=== PATIENT | male | born 1955 | race Caucasian/White ===

== ENCOUNTER 2021-02-25 10:30 | Outpatient (REF) | payer BC, SELFPAY ==
[2021-02-25 10:34] LABS: MANUAL DIFF FLAG NO
[2021-02-25 10:44] LABS: Basophils Percent Auto 0.4 % (0-2); Eosinophils Absolute Auto 0.1 X10*3/uL (0.0-0.4); Eosinophils Percent Auto 1.9 % (0-4); Hematocrit 43.9 % (42.0-52.0); Hemoglobin 14.9 g/dl (14.0-18.0); Imm Gran Abs Auto 0.04 X10*3/uL (0.00-0.03); Imm Gran Pct Auto 0.9 % (0.0-0.4); Lymphocytes Percent Auto 21.1 % (20-40); Mean Corpuscular HGB Conc 33.9 g/dl (31.0-36.0); Mean Corpuscular Hemoglobin 31.8 pg (27.0-33.0); Mean Corpuscular Volume 93.6 fL (80.0-98.0); Mean Platelet Volume 10.1 fL (9.4-12.4); Monocytes Absolute Auto 0.7 X10*3/uL (0.1-1.2); Monocytes Percent Auto 14.4 % (2-11); Neutrophils Absolute Auto 2.9 x10*3/uL (2.0-8.3); Neutrophils Percent Auto 61.3 % (45-73); Platelet Count 199 X10*3/uL (160-400); Red Blood Count 4.69 X10*6/uL (4.60-5.80); Red Cell Distribution Width 11.7 % (11.0-16.0); White Blood Count 4.7 X10*3/uL (4.8-10.8)
[2021-02-25 10:54] LABS: Appearance Urine CLEAR; Color Urine YELLOW; Glucose Urine UA NEG (NEG); Leukocyte Esterase Urine NEG (NEG); Nitrite Urine NEG (NEG); Urine Blood NEG (NEG); Urine Ketones NEG (NEG); Urine Protein NEG (NEG-TRACE)
[2021-02-25 10:57] LABS: Alanine Aminotransferase 36 U/L (0-40); Albumin Level 4.3 g/dL (3.5-5.0); Alkaline Phosphatase 93 U/L (39-117); Anion Gap 11 (12-20); Aspartate Amino Transferase 29 U/L (5-37); Bilirubin Total 0.8 mg/dL (0.0-1.0); Blood Urea Nitrogen 12 mg/dL (9-16); Calcium 9.5 mg/dL (8.4-10.2); Carbon Dioxide 28 mmol/L (22-29); Chloride 102 mmol/L (96-108); Cholesterol 207 mg/dL; Estimated Glomerular Filt Rate > 60; Glucose Fasting 108 mg/dL (60-99); HDL Cholesterol 70 mg/dL; LDL Cholesterol Calculated 123 mg/dl; Potassium 4.1 mmol/L (3.3-5.1); Sodium 137 mmol/L (135-145); Total Protein 6.8 g/dL (6.5-8.0); Triglycerides 73 mg/dL
[2021-02-25 11:05] LABS: Hemoglobin A1C 151.6633 umol/L
[2021-02-25 11:07] LABS: Estimated Average Glucose 108 mg/dL; Hemoglobin A1c % 5.4 %
[2021-02-25 11:16] LABS: Creatinine Urine 159.59 mg/dL; Microalbum/Creatinine Ratio Ur 5.6 ug/mg cr
[2021-02-25 11:19] LABS: PSA,Total (Free>4and<10) 2.62 ng/mL (0.00-4.00)
== END 2021-02-25 10:31 | disposition home or self-care (01) ==
LOC: HO.LNP 10:30
PROVIDERS: PCP Internal Medicine; Visit Provider Internal Medicine
DX: Z00.00 Encounter for general adult medical examination without abnormal findings (principal); Z12.5 Encounter for screening for malignant neoplasm of prostate; R19.5 Other fecal abnormalities; I10 Essential (primary) hypertension; R73.03 Prediabetes
CPT/HCPCS: 80053; 80061; 81003; 82043; 83036; 84153; 85025

== ENCOUNTER 2021-09-03 10:55 | Outpatient (REF) | payer BC, SELFPAY ==
[2021-09-03 11:54] LABS: PSA,Total (Free>4and<10) 2.82 ng/mL (0.00-4.00)
== END 2021-09-03 10:56 | disposition home or self-care (01) ==
LOC: HO.LNP 10:55
PROVIDERS: PCP Internal Medicine; Visit Provider Internal Medicine
DX: Z12.5 Encounter for screening for malignant neoplasm of prostate (principal); R97.20 Elevated prostate specific antigen [PSA]
CPT/HCPCS: 84153

== ENCOUNTER 2022-03-04 11:21 | Outpatient (REF) | payer BC, SELFPAY ==
[2022-03-04 11:25] LABS: MANUAL DIFF FLAG NO
[2022-03-04 11:58] LABS: Appearance Urine Clear; Color Urine Yellow; Glucose Urine UA Negative (Negative); Leukocyte Esterase Urine Negative (Negative); Nitrite Urine Negative (Negative); Specific Gravity - Urine 1.015 (1.005-1.025); Urine Blood Negative (Negative); Urine Ketones Negative (Negative); Urine Protein Negative (Neg-Trace)
[2022-03-04 12:02] LABS: Bacteria Urine None Seen (None Seen); Basophils Percent Auto 0.9 % (0-2); Eosinophils Absolute Auto 0.1 X10*3/uL (0.0-0.4); Eosinophils Percent Auto 2.4 % (0-4); Hematocrit 43.6 % (42.0-52.0); Hemoglobin 14.7 g/dl (14.0-18.0); Hyaline Casts Urine 0-2 /LPF (0-2); Imm Gran Abs Auto 0.04 X10*3/uL (0.00-0.03); Imm Gran Pct Auto 0.9 % (0.0-0.4); Lymphocytes Percent Auto 23.1 % (20-40); Mean Corpuscular HGB Conc 33.7 g/dl (31.0-36.0); Mean Corpuscular Hemoglobin 32.2 pg (27.0-33.0); Mean Corpuscular Volume 95.6 fL (80.0-98.0); Mean Platelet Volume 9.9 fL (9.4-12.4); Monocytes Absolute Auto 0.6 X10*3/uL (0.1-1.2); Monocytes Percent Auto 14.4 % (2-11); Neutrophils Absolute Auto 2.5 x10*3/uL (2.0-8.3); Neutrophils Percent Auto 58.3 % (45-73); Platelet Count 196 X10*3/uL (160-400); RBC Urine 0-2 /HPF (0-2); Red Blood Count 4.56 X10*6/uL (4.60-5.80); Red Cell Distribution Width 11.6 % (11.0-16.0); Squamous Epithelial Cell Urine 0-2 /HPF (0-2); WBC Urine 0-5 /HPF (0-5); White Blood Count 4.3 X10*3/uL (4.8-10.8)
[2022-03-04 12:17] LABS: Estimated Average Glucose 108 mg/dL; Hemoglobin A1c % 5.4 %
[2022-03-04 12:42] LABS: Microalbum/Creatinine Ratio Ur 5.3 ug/mg cr
[2022-03-04 14:07] LABS: Alanine Aminotransferase 35 U/L (0-40); Albumin Level 4.1 g/dL (3.5-5.0); Alkaline Phosphatase 94 U/L (39-117); Anion Gap 10 (12-20); Aspartate Amino Transferase 30 U/L (5-37); Bilirubin Total 0.4 mg/dL (0.0-1.0); Blood Urea Nitrogen 12 mg/dL (9-16); Calcium 8.8 mg/dL (8.4-10.2); Carbon Dioxide 29 mmol/L (22-29); Chloride 106 mmol/L (96-108); Cholesterol 202 mg/dL; Estimated Glomerular Filt Rate > 60; Glucose Fasting 107 mg/dL (60-99); HDL Cholesterol 68 mg/dL; LDL Cholesterol Calculated 114 mg/dl; PSA,Total (Free>4and<10) 2.17 ng/mL (0.00-4.00); Potassium 4.9 mmol/L (3.3-5.1); Sodium 140 mmol/L (135-145); Total Protein 6.5 g/dL (6.5-8.0); Triglycerides 102 mg/dL
== END 2022-03-04 11:22 | disposition home or self-care (01) ==
LOC: HO.LNP 11:21
PROVIDERS: Visit Provider Internal Medicine
DX: Z00.00 Encounter for general adult medical examination without abnormal findings (principal); I10 Essential (primary) hypertension; R73.09 Other abnormal glucose; Z12.5 Encounter for screening for malignant neoplasm of prostate
CPT/HCPCS: 80053; 80061; 81001; 82043; 83036; 84153; 85025

== ENCOUNTER 2022-05-13 11:25 | Outpatient (REF) | payer BC, SELFPAY ==
[2022-05-13 11:26] LABS: MANUAL DIFF FLAG NO
[2022-05-13 11:54] LABS: Basophils Percent Auto 0.9 % (0-2); Eosinophils Absolute Auto 0.1 X10*3/uL (0.0-0.4); Eosinophils Percent Auto 1.8 % (0-4); Hematocrit 40.4 % (42.0-52.0); Hemoglobin 13.8 g/dl (14.0-18.0); Imm Gran Abs Auto 0.06 X10*3/uL (0.00-0.03); Imm Gran Pct Auto 1.3 % (0.0-0.4); Lymphocytes Absolute Auto 1.3 X10*3/uL (1.2-4.9); Mean Corpuscular HGB Conc 34.2 g/dl (31.0-36.0); Mean Corpuscular Volume 93.7 fL (80.0-98.0); Mean Platelet Volume 9.3 fL (9.4-12.4); Monocytes Absolute Auto 0.6 X10*3/uL (0.1-1.2); Monocytes Percent Auto 13.9 % (2-11); Neutrophils Absolute Auto 2.4 x10*3/uL (2.0-8.3); Neutrophils Percent Auto 54.1 % (45-73); Platelet Count 223 X10*3/uL (160-400); Red Blood Count 4.31 X10*6/uL (4.60-5.80); Red Cell Distribution Width 11.7 % (11.0-16.0); White Blood Count 4.5 X10*3/uL (4.8-10.8)
== END 2022-05-13 11:26 | disposition home or self-care (01) ==
LOC: HO.LNP 11:25
PROVIDERS: Visit Provider Internal Medicine
DX: D70.9 Neutropenia, unspecified (principal)
CPT/HCPCS: 85025

== ENCOUNTER 2023-03-09 11:04 | Outpatient (REF) | payer MEDICARE, BC, SELFPAY ==
[2023-03-09 11:09] LABS: MANUAL DIFF FLAG NO
[2023-03-09 11:49] LABS: Basophils Percent Auto 0.5 % (0-2); Eosinophils Absolute Auto 0.1 X10*3/uL (0.0-0.4); Eosinophils Percent Auto 2.1 % (0-4); Hematocrit 43.3 % (42.0-52.0); Hemoglobin 14.9 g/dl (14.0-18.0); Imm Gran Abs Auto 0.04 X10*3/uL (0.00-0.03); Imm Gran Pct Auto 0.7 % (0.0-0.4); Lymphocytes Absolute Auto 1.1 X10*3/uL (1.2-4.9); Lymphocytes Percent Auto 18.8 % (20-40); Mean Corpuscular HGB Conc 34.4 g/dl (31.0-36.0); Mean Corpuscular Hemoglobin 32.3 pg (27.0-33.0); Mean Corpuscular Volume 93.9 fL (80.0-98.0); Mean Platelet Volume 9.8 fL (9.4-12.4); Monocytes Absolute Auto 0.6 X10*3/uL (0.1-1.2); Monocytes Percent Auto 11.3 % (2-11); Neutrophils Absolute Auto 3.7 x10*3/uL (2.0-8.3); Neutrophils Percent Auto 66.6 % (45-73); Platelet Count 198 X10*3/uL (160-400); Red Blood Count 4.61 X10*6/uL (4.60-5.80); Red Cell Distribution Width 11.6 % (11.0-16.0); White Blood Count 5.6 X10*3/uL (4.8-10.8)
[2023-03-09 11:52] LABS: Appearance Urine Clear; Color Urine Yellow; Glucose Urine UA Negative (Negative); Leukocyte Esterase Urine Trace (Negative); Nitrite Urine Negative (Negative); PH 7.5 (5.0-9.0); UMIC TRIGGER UACC YES; Urine Blood Negative (Negative); Urine Ketones Negative (Negative); Urine Protein Negative (Neg-Trace)
[2023-03-09 11:58] LABS: Bacteria Urine None Seen (None Seen); Hyaline Casts Urine 0-2 /LPF (0-2); RBC Urine 0-2 /HPF (0-2); Squamous Epithelial Cell Urine 0-2 /HPF (0-2); WBC Urine 0-5 /HPF (0-5)
[2023-03-09 12:00] LABS: Estimated Average Glucose 108 mg/dL; Hemoglobin A1c % 5.4 % (<6.0)
[2023-03-09 12:21] LABS: Alanine Aminotransferase 21 U/L (0-40); Alkaline Phosphatase 91 U/L (39-117); Anion Gap 14 (12-20); Aspartate Amino Transferase 23 U/L (5-37); Bilirubin Total 0.7 mg/dL (0.0-1.0); Blood Urea Nitrogen 10 mg/dL (9-16); Calcium 9.1 mg/dL (8.4-10.2); Carbon Dioxide 26 mmol/L (22-29); Chloride 103 mmol/L (96-108); Cholesterol 186 mg/dL (<200); Estimated Glomerular Filt Rate > 60; Glucose Fasting 102 mg/dL (60-99); HDL Cholesterol 58 mg/dL (>40); LDL Cholesterol Calculated 106 mg/dL (<100); Potassium 3.8 mmol/L (3.3-5.1); Sodium 139 mmol/L (135-145); Total Protein 6.8 g/dL (6.5-8.0); Triglycerides 113 mg/dL (<150)
[2023-03-09 12:23] LABS: PSA,Total (Free>4and<10) 2.62 ng/mL (0.00-4.00)
[2023-03-09 12:41] LABS: Microalbum/Creatinine Ratio Ur 3.8 ug/mg cr (<30)
== END 2023-03-09 11:05 | disposition home or self-care (01) ==
LOC: HO.LNP 11:04
PROVIDERS: Visit Provider Internal Medicine
DX: Z00.00 Encounter for general adult medical examination without abnormal findings (principal); Z12.5 Encounter for screening for malignant neoplasm of prostate; I10 Essential (primary) hypertension; R73.03 Prediabetes; D70.9 Neutropenia, unspecified
CPT/HCPCS: 80053; 80061; 81001; 82043; 82570; 83036; 84153; 85025

== ENCOUNTER 2024-03-24 12:12 | Outpatient (REF) | payer MEDICARE, BC, SELFPAY ==
--- OUTSIDE RECORDS SUMMARY | 2024-03-24 12:15 | XMS_ITS ---
Author Organization Cecilio Ruffin MD Address [address] [place], [place] [phone] Care Team Providers Care Nail Kegger Name Role Phone Cecilio Ruffin Primary Care Provider ALLERGIES No Known Allergies RESULTS Component Value Reference Range Notes Occult Blood, Stool, Guaiac Reviewed date:03/19/2023 12:01:43 PM Interpretation:Negative Performing Lab: Notes/Report: Negative Occult Blood, Stool, Guaiac Neg REASON FOR VISIT review labs, No Covid symptoms MEDICATIONS Medication SIG (Take, Route, Frequency, Duration) Notes Start Date End Date Status Irbesartan-hydroCHLOROthia zide 300-12.5 MG TAKE 1 TABLET BY MOUTH EVERY DAY Active SOCIAL HISTORY Tobacco Use: Social History Observation Description Date Details (start date - stop date) Never Smoker NA - NA Sex Assigned At : Social History Observation Description Sex Assigned At Unknown Tobacco Use/Smoking Question Answer Notes Patient is a nonsmoker Additional Findings: Tobacco Non-User Cu rrent non-smoker, currently using no form of tobacco Alcohol Screen Question Answer Notes Did you have a drink contain ing alcohol in the past year? Yes How often did you have a dri nk containing alcohol in the past year? 4 or more times a week (4 points) How many drinks did you have on a typical day when you were drinking in the past year? 1 or 2 drinks (0 point) How often did you have 6 or more drinks on one occasion in the past year? Never (0 point) Points 4 Interpretation Positive VITAL SIGNS BMI 27.80 kg/m2 03/16/2023 Blood pressure systolic 128 mm Hg 03/16/20 23 Blood pressure diastolic 86 mm Hg 023 Height 72 in 03/16/2023 Weight 205 lbs 03/16/2023 weight is up 2 pounds since 09-08-22 Encounters Encounter Location Date Provider Diagnosis Cecilio Ruffin MD [address] [place] [address] Drive [address] [place] [phone] 03/16/2023 Cecilio Ruffin Essential hypertension I10 ; Prediabetes R73.09 ; History of melanoma Z85.820 ; Colon cancer screening Z12.11 and Depression screening Z13.31 ASSESSMENTS Encounter Date Diagnosis Assessment Notes Treatment Notes Treatment Clinical Notes 03/16/2023 Essential hypertension (ICD-10 - I10) well controlled, will continue current regiment 03/16/2023 Prediabetes (ICD-10 - R73.09) a1c is good, no need for medication at this time 03/16/2023 History of melanoma (ICD-10 - Z85.820) no sign of any melenoma 03/16/2023 Colon cancer screening (ICD-10 - Z12.11) guaiac negative 03/16/2023 Depression screening (ICD-10 - Z13.31) negative screen PLAN OF TREATMENT Medication Medication Name Sig Start Date Stop Date Notes Irbesartan-hydroCHLOROthiazi de 300-12.5 MG TAKE 1 TABLET BY MOUTH EVERY DAY Treatment Notes Assessment Notes Essential hypertension well controlled, will continue current regiment Prediabetes a1c is good, no need for medication at this time History of melanoma no sign of any melen markos Colon cancer screening guaiac negative Depression screening negative screen Next Appt Details Follow Up: 6 Months, Reason: Provider Name:Cecilio hill, 04/01/2024 10:00:00 AM, [address] [place] [address], Suite [facility], [place], [place], [phone], Progress Notes * Examination Category Sub-Category Detail Notes General Examination GENERAL APPEARANCE: alert, w ell hydrated, in no distress , male HEAD: normocephalic EYES: BOTH EYES, extraocul ar movement full and smooth EARS: BOTH EARS, normal THROAT: no erythema, no exud ate, pharynx normal NECK/THYROID: no carotid bruit, no cervical lymphadenopathy HEART: regular rate and rhy thm, no murmurs, rubs, gallops LUNGS: no wheezes, rales, r honchi, good air movement, clear to auscultation bilaterally ABDOMEN: no hepatosplenomegal y, soft, nontender, nondistended SKIN: good turgor EXTREMITIES: no edema MALE GENITOURINARY: no testicular mass, circumcised, testes descended bilaterally RECTAL EXAM: stool guaiac negativ e, no masses palpable, prostate normal History and Physical Notes * HPI (History of Present Illness) Category Sub-Category Detail Notes Depression Screening PHQ-9 Little inte rest or pleasure in doing things: Not at all Feeling down, depressed, or hopeless: No t at all Trouble falling or staying asleep, or sl eeping too much: Not at all Feeling tired or having little energy: N ot at all Poor appetite or overeating: Not at all Feeling bad about yourself o r that you are a failure, or have let yourself or your family down: Not at all Trouble concentrating on thi ngs, such as reading the newspaper or watching television: Not at all Moving or speaking so slowly that other people could have noticed; or the opposite, being so fidgety or restless that you have been moving around a lot more than usual: Not at all Thoughts that you would be b jannet off or of hurting yourself in some way: Not at all Total Score: 0 Interpretation and Intervention Depression Rogelio cole Findings: Negative Follow-Up for Depression: : review of PH Q-9 found negative result, no follow-up needed SDOH Questions SDOH Questions In the past year have you been worried about losing housing?: No In the past year have you or any family members you live with been unable to get any of the following when it was really needed? Check all that apply:: None Fall Risk History Have you had any falls with injury in the past year?: No Have you had two or more falls in the year?: No Communication Needs Communication Needs Does the patient have a hearing impairment: No Does the patient have a vision impairmen t?: Yes ?If yes, what is the vision impairment?: Glasses Does the patient have a cognition impair ment?: No
--- OUTSIDE RECORDS SUMMARY | 2024-03-24 12:15 | XMS_ITS | Patient Health Record ---
Author Organization Cecilio Ruffin MD Address [address] [place], [place] [phone] Care Team Providers Care Professor Of Environmental Engineering Name Role Phone Cecilio Ruffin Primary Care Provider ALLERGIES No Known Allergies REASON FOR REFERRAL No Information MEDICATIONS Medication SIG (Take, Route, Frequency, Duration) Notes Start Date End Date Status Irbesartan-hydroCHLOROthia zide 300-12.5 MG TAKE 1 TABLET BY MOUTH EVERY DAY for 90 Active Ciclopirox 0.77 % APPLY DAILY TO SKIN EVERY DAY FOR 14 DAYS for 30 Active IMMUNIZATIONS Vaccine Route Administration Date Status Comme nts TDaP IM Intramuscular 01/27/2012 Administered Tetanus Unknown 01/27/2012 Administered Covid Vaccine Unknown 05/19/2020 Administered Pfizer SARS-COV-2 Pfizer Unknown 06/16/2020 Administered Fluarix Quadrivalent IM Intramuscular 03/04/2022 Administe red Influenza High Dose IM Intramuscular 03/09/2023 Administer ed DECLINED, FLU Unknown 12/01/2013 Refused Fluarix Quadrivalent Unknown 05/15/2016 Refused Fluarix Quadrivalent Unknown 01/06/2017 Refused Fluarix Quadrivalent Unknown 01/16/2017 Refused Fluarix Quadrivalent Unknown 01/25/2018 Refused Shingrix Unknown 08/03/2018 Refused PPSV23 (Pnemovax) Unknown 08/03/2018 Refused Fluarix Quadrivalent Unknown 02/01/2019 Refused Fluarix Quadrivalent Unknown 02/13/2020 Refused Fluarix Quadrivalent Unknown 03/04/2021 Refused SOCIAL HISTORY Tobacco Use: Social History Observation [...] nk containing alcohol in the past year? Monthly or less (1 point) How many drinks did you have on a typical day when you were drinking in the past year? 1 or 2 drinks (0 point) How often did you have 6 or more drinks on one occasion in the past year? Never (0 point) Points 1 Interpretation Negative PROBLEMS Problem Type ICD Code Onset Dates Problem Status W/U Status Risk SNOMED Code Notes Problem Essential hypertension (I10) Active confirmed 89617624 Problem Prediabetes (R73.09) Active confirmed 0438229 Problem History of melanoma (Z85.820) Active confirmed 782682483 Problem Neutropenia, unspecified type (D70.9) Active confirmed 202823892 Problem Bilateral carpal tunnel syndrome (G56.03) Active confirmed 89725238 VITAL SIGNS Blood pressure diastolic 60 mm Hg 09/22/2023 nacho ggt is up 4 pounds since 03-16-23 Height 72 in 09/22/2023 weiggt is up 4 pounds since 03-16-23 Blood pressure systolic 104 mm Hg 09/22/2023 weig gt is up 4 pounds since 03-16-23 Weight 209 lbs 09/22/2023 weiggt is up 4 pounds since 03-16-23 BMI 28.34 kg/m2 09/22/2023 weiggt is up 4 pounds since 03-16-23 Encounters Encounter Location Date Provider Diagnosis Cecilio Ruffin MD [address] [place] [address] Drive [address] [place] [id number] 03/24/2024 Cecilio Ruffin Essential hypertension I10 ; Prediabetes R73.09 and Neutropenia, unspecified type D70.9 Cecilio Ruffin MD [address] [place] [address] Drive [address] [place] [id number] 09/22/2023 Cecilio Ruffin Jock itch B35.6 and Essential hypertension I10 ASSESSMENTS Encounter Date Diagnosis Assessment Notes Treatment Notes Treatment Clinical Notes 03/24/2024 Essential hypertension (ICD-10 - I10) 09/22/2023 Essential hypertension (ICD-10 - I10) doing well on meds. no symptoms 09/22/2023 Jock itch (ICD-10 - B35.6) patient verbalized understanding of medication and directions for use 03/24/2024 Prediabetes (ICD-10 - R73.09) 03/24/2024 Neutropenia, unspecified type (ICD-10 - D70.9) PLAN OF TREATMENT Pending Test Test Name Order Date Electrocardiogram (EKG) 01/16/2017 Electrocardiogram (EKG) 01/28/2018 Complete Blood Count Auto Diff 4 Comprehensive [place]. Panel Fast 4 Lipid Panel 03/24/2024 PSA,Total (Free>4and<10) 03/24/2024 Microalbumin, Random 03/24/2024 Hemoglobin A1c 03/24/2024 UA ClnCatch+Micro w/rflx Cult 03/24/2024 Next Appt Details Provider Name:Cecilio parksr, 04/01/2024 10:00:00 AM, [address] [place] [address], [address], [place], [place], [phone], Insurance Providers Payer Name Payer Address Payer Phone Subscriber Number Group Number Insured Name Patient Relationship to Insured Coverage Start Date Coverage End Date MEDICARE NHIC [address] [place] [address] [id number] Pravin Webb Self - patient is the insured [employer] [address] [place], [place] [id number] Pravin Webb Self - patient is the insured MEDICAL (GENERAL) HISTORY Medical History History ICD Code colonoscopy 2008 due 2018; c olonoscopy 02/20/[address] Salinas - repeat 10 years 11/30/13 refuses flu vac
--- OUTSIDE RECORDS SUMMARY | 2024-03-24 12:15 | XMS_ITS ---
Author Organization Cecilio Ruffin MD Address [address] [place], [place] [phone] Care Team Providers Care Electrician Helper Powerhouse Name Role Phone Cecilio Ruffin Primary Care Provider ALLERGIES No Known Allergies REASON FOR VISIT 6 MO F/U MEDICATIONS Medication SIG (Take, Route, Frequency, Duration) Notes Start Date End Date Status Ciclopirox 0.77 % 1 application Putty Maker ally Once a day for 14 days 09/22/2023 Active Irbesartan-hydroCHLOROthia zide 300-12.5 MG TAKE 1 TABLET BY MOUTH EVERY DAY Active VITAL SIGNS BMI 28.34 kg/m2 09/22/2023 Blood pressure systolic 104 mm Hg 09/22/19 24 Blood pressure diastolic 60 mm Hg 024 Height 72 in 09/22/2023 Weight 209 lbs 09/22/2023 weiggt is up 4 pounds since 03-16-23 Encounters Encounter Location Date Provider Diagnosis Cecilio Ruffin MD [address] [place] [phone] 09/22/2023 Cecilio Ruffin Jock itch B35.6 and Essential hypertension I10 ASSESSMENTS Encounter Date Diagnosis Assessment Notes Treatment Notes Treatment Clinical Notes 09/22/2023 Jock itch (ICD-10 - B35.6) patient verbalized understanding of medication and directions for use 09/22/2023 Essential hypertension (ICD-10 - I10) doing well on meds. no symptoms PLAN OF TREATMENT Medication Medication Name Sig Start Date Stop Date Notes Ciclopirox 0.77 % 1 application Putty Maker ally Once a day for 14 days 09/22/2023 Irbesartan-hydroCHLOROthiazi d e 300-12.5 MG TAKE 1 TABLET BY MOUTH EVERY DAY Treatment Notes Assessment Notes Jock itch patient verbalized u nderstanding of medication and directions for use Essential hypertension doing well on med s. no symptoms Next Appt Details Provider Name:Cecilio hill, 04/01/2024 10:00:00 AM, [address] [facility], [address], [place], [place], [phone], Progress Notes * Examination Category Sub-Category Detail Notes General Examination GENERAL APPEARANCE: alert, w ell hydrated, in no distress HEAD: normocephalic HEART: regular rate and rhy thm, no murmurs, rubs, gallops LUNGS: no wheezes, rales, r honchi, good air movement, clear to auscultation bilaterally SKIN: good turgor
[2024-03-24 12:18] LABS: MANUAL DIFF FLAG NO
[2024-03-24 12:29] LABS: Basophils Percent Auto 0.7 % (0-2); Eosinophils Absolute Auto 0.1 X10*3/uL (0.0-0.4); Eosinophils Percent Auto 1.2 % (0-4); Hematocrit 45.1 % (42.0-52.0); Hemoglobin 15.2 g/dl (14.0-18.0); Imm Gran Abs Auto 0.04 X10*3/uL (0.00-0.03); Lymphocytes Percent Auto 25.4 % (20-40); Mean Corpuscular HGB Conc 33.7 g/dl (31.0-36.0); Mean Corpuscular Hemoglobin 32.1 pg (27.0-33.0); Mean Corpuscular Volume 95.3 fL (80.0-98.0); Mean Platelet Volume 9.9 fL (9.4-12.4); Monocytes Absolute Auto 0.6 X10*3/uL (0.1-1.2); Monocytes Percent Auto 14.8 % (2-11); Neutrophils Absolute Auto 2.3 x10*3/uL (2.0-8.3); Neutrophils Percent Auto 56.9 % (45-73); Platelet Count 177 X10*3/uL (160-400); Red Blood Count 4.73 X10*6/uL (4.60-5.80); Red Cell Distribution Width 11.7 % (11.0-16.0); White Blood Count 4.1 X10*3/uL (4.8-10.8)
[2024-03-24 12:31] LABS: Appearance Urine Clear; Color Urine Yellow; Glucose Urine UA Negative (Negative); Leukocyte Esterase Urine Negative (Negative); Nitrite Urine Negative (Negative); PH 5.5 (5.0-9.0); Urine Blood Negative (Negative); Urine Ketones Negative (Negative); Urine Protein Negative (Neg-Trace)
[2024-03-24 12:34] LABS: Bacteria Urine None Seen (None Seen); Hyaline Casts Urine 0-2 /LPF (0-2); RBC Urine 0-2 /HPF (0-2); Squamous Epithelial Cell Urine 0-2 /HPF (0-2); WBC Urine 0-5 /HPF (0-5)
[2024-03-24 12:37] LABS: Estimated Average Glucose 105 mg/dL; Hemoglobin A1C 133.3181 umol/L; Hemoglobin A1c % 5.3 % (<6.0); Total Hemoglobin (HGBA1C) 3880.9254 umol/L
[2024-03-24 12:46] LABS: Creatinine Urine 136.87 mg/dL; Microalbum/Creatinine Ratio Ur 6.5 ug/mg cr (<30)
[2024-03-24 12:48] LABS: Alanine Aminotransferase 43 U/L (0-40); Albumin Level 4.3 g/dL (3.5-5.0); Alkaline Phosphatase 89 U/L (39-117); Anion Gap 11 (12-20); Aspartate Amino Transferase 38 U/L (5-37); Bilirubin Total 0.4 mg/dL (0.0-1.0); Blood Urea Nitrogen 12 mg/dL (9-16); Calcium 8.7 mg/dL (8.4-10.2); Carbon Dioxide 27 mmol/L (22-29); Chloride 107 mmol/L (96-108); Cholesterol 201 mg/dL (<200); Estimated Glomerular Filt Rate > 60; Glucose Fasting 60 mg/dL (60-99); HDL Cholesterol 66 mg/dL (>40); LDL Cholesterol Calculated 112 mg/dL (<100); Potassium 4.2 mmol/L (3.3-5.1); Sodium 141 mmol/L (135-145); Total Protein 7.1 g/dL (6.5-8.0); Triglycerides 116 mg/dL (<150)
[2024-03-24 13:06] LABS: PSA,Total (Free>4and<10) 2.26 ng/mL (0.00-4.00)
== END 2024-03-24 12:13 | disposition home or self-care (01) ==
LOC: HO.LNP 12:12
PROVIDERS: Visit Provider Internal Medicine
DX: I10 Essential (primary) hypertension (principal); R73.09 Other abnormal glucose; D70.9 Neutropenia, unspecified; Z12.5 Encounter for screening for malignant neoplasm of prostate
CPT/HCPCS: 80053; 80061; 81001; 82043; 82570; 83036; 84153; 85025

== ENCOUNTER 2025-03-28 07:45 | Outpatient (REF) | payer MEDICARE, BC, SELFPAY ==
--- OUTSIDE RECORDS SUMMARY | 2024-03-24 03:45 | XMS_ITS ---
Author Organization Cecilio Ruffin MD Address [address] [place], [place] [id number] Care Team Providers Care Recruiting Scheduler Name Role Phone Cecilio Ruffin Primary Care Provider [phone] Results Component Value Reference Range Notes Complete Blood Count Auto Di ff Reviewed date:03/24/2024 12:35:26 PM Interpretation: Performing Lab:[facility], [address] [place] [phone] Notes/Report: White Blood Count 4.1 4.8-10.8 X10*3/uL Red Blood Count 4.73 4.60-5.80 X10*6/uL Hemoglobin 15.2 14.0-18.0 g/dl Hematocrit 45.1 42.0-52.0 % Mean Corpuscular Volume 95.3 80.0-98.0 fL Mean Corpuscular Hemoglobin 32.1 27.0-33.0 pg Mean Corpuscular HGB Conc 33.7 31.0-36.0 g/dl Red Cell Distribution Width 11.7 11.0-16.0 % Platelet Count 177 160-400 X10*3/uL Mean Platelet Volume 9.9 9.4-12.4 fL Neutrophils Percent Auto 56.9 45-73 % Imm Gran Pct Auto 1.0 0.0-0.4 % Lymphocytes Percent Auto 25.4 20-40 % Monocytes Percent Auto 14.8 2-11 % Eosinophils Percent Auto 1.2 0-4 % Basophils Percent Auto 0.7 0-2 % NRBC Pct Auto 0.0 0.0-0.2 /100WBC Neutrophils Absolute Auto 2.3 2.0-8.3 x10*3/u L Imm Gran Abs Auto 0.04 0.00-0.03 X10*3/uL Lymphocytes Absolute Auto 1.0 1.2-4.9 X10*3/u L Monocytes Absolute Auto 0.6 0.1-1.2 X10*3/uL Eosinophils Absolute Auto 0.1 0.0-0.4 X10*3/u L Basophils Absolute Auto 0.0 0.0-0.2 X10*3/uL NRBC Abs Auto 0.000 0.0-0.012 X10*3/uL Comprehensive [place]. Panel Fa st Reviewed date:03/24/2024 12:54:04 PM Interpretation: Performing Lab:[facility], [address] [place] [phone] Notes/Report: Sodium 141 135-145 mmol/L Potassium 4.2 3.3-5.1 mmol/L Chloride 107 96-108 mmol/L Carbon Dioxide 27 22-29 mmol/L Anion Gap 11 12-20 Blood Urea Nitrogen 12 9-16 mg/dL Creatinine 0.72 0.5-1.4 mg/dL Estimated Glomerular Filt Rate > 60 Chronic Kidney Disease: Estimated GFR < 60 mL/min/1.73m2 Severe Kidney Disease: Estimated GFR < 15 mL/min/1.73m2 Glucose Fasting 60 60-99 mg/dL Calcium 8.7 8.4-10.2 mg/dL Bilirubin Total 0.4 0.0-1.0 mg/dL Aspartate Amino Transferase 38 5-37 U/L Alanine Aminotransferase 43 0-40 U/L Total Protein 7.1 6.5-8.0 g/dL Albumin Level 4.3 3.5-5.0 g/dL Alkaline Phosphatase 89 39-117 U/L Lipid Panel Reviewed date:03/24/2024 12:53:20 PM Interpretation: Performing Lab:[facility], [address] [place] [phone] Notes/Report: Triglycerides 116 <150 mg/dL Desirable Triglyceride: less than 150 mg/dL Borderline High Triglyceride 150-199 mg/dL High Triglyceride: 200-499 mg/dL Very High Triglyceride: greater than or equal to 5OO mg/dL Cholesterol 201 <200 mg/dL Desirable Cholesterol: less than 200 mg/dL Borderline High Cholesterol: 200-239 mg/dL High Cholesterol: greater than 239 mg/dL LDL Cholesterol Calculated 112 <100 mg/dL Desirable LDL: less than 100 mg/dL Near Optimal/Above Optimal LDL: 110-129 mg/dL Borderline High LDL: 130-159 mg/dL High LDL: 160-189 mg/dL Very High LDL: greater than or equal to 190 mg/dL HDL Cholesterol 66 >40 mg/dL Desirable HDL: greater than 40 mg/dL Note: This HDL assay may give artificially low results in patients with liver disease. PSA,Total (Free>4and<10) Reviewed date:03/24/2024 04:50:11 PM Interpretation: Performing Lab:[address] [phone] Notes/Report: PSA,Total (Free>4and<10) 2.26 0.00-4.00 ng/mL A Free PSA was not performed: The percentage of Free PSA can be used to enhance the differentiation of prostate cancer from benign prostatic disease in subjects whose PSA levels are between 4.0 and 10.0 ng/mL. For subjects whose PSA levels are below 4.0 or above 10.0 ng/mL, the risk of prostate cancer is determined on the basis of the PSA alone. Therefore the % Free PSA is recommended only for those subjects whose PSA levels are between 4.0 and 10.0 ng/mL. PSA methodology: Diaz Alinity i Chemiluminescent Microparticle Immunoassay (CMIA) Microalbumin, Random Reviewed date:03/24/2024 04:57:13 PM Interpretation: Performing Lab:[facility], [address] [place] [phone] Notes/Report: Creatinine Urine 136.87 Microalbumin Urine 9.0 Microalbum/Creatinine Ratio Ur 6.5 <30 ug/mg cr Albumin/Creatinine Ratio Reference Ranges: Normal: < 30 ug/mg creatinine Microalbuminuria: 30 - 300 ug/mg creatinine Clinical Albuminuria: > 300 ug/mg creatinine Hemoglobin A1c Reviewed date:03/24/2024 12:49:15 PM Interpretation: Performing Lab:[facility], [address] [place] [phone] Notes/Report: Hemoglobin A1c % 5.3 <6.0 % Hemoglobin A1C Reference Range Adults: 4.8 - 6.0 % Non diabetic: < 6.0 % Goal: < 7.0 % Additional Action Suggested: > 8.0 % Note: Hemoglobin A1c results are invalid for patients with abnormal amounts of HbF. Blood transfusions may impact the HbA1c concentration in the patient sample. Estimated Average Glucose 105 eAG = Estimated average glucose which is %A1C expressed as average glucose, using the formula of the [id number] Average Glucose study (ADAG), Diabetes Care, Vol.31,#8, Oct. 2007 UA ClnCatch+Micro w/rflx Cul t Reviewed date:03/24/2024 04:58:37 PM Interpretation: Performing Lab:[facility], [address] [place] [phone] Notes/Report: Urine, Clean Catch Color Urine Yellow Appearance Urine Clear PH 5.5 5.0-9.0 Glucose Urine UA Negative Negative mg/dL Urine Blood Negative Negative Specific [place] - Urine 1.020 1.005-1.025 Urine Protein Negative Neg-Trace mg/dL Urine Ketones Negative Negative mg/dL Nitrite Urine Negative Negative Leukocyte Esterase Urine Negative Negative RBC Urine 0-2 0-2 /HPF WBC Urine 0-5 0-5 /HPF Squamous Epithelial Cell Urine 0-2 0-2 /HPF Bacteria Urine None Seen None Seen Hyaline Casts Urine 0-2 0-2 /LPF REASON FOR VISIT FASTING LABS Encounters Encounter Location Date Provider Diagnosis Cecilio Ruffin MD [address] [place] [address] Drive [address] [place] [phone] 03/24/2024 Cecilio Ruffin Essential hypertension I10 ; Prediabetes R73.09 and Neutropenia, unspecified type D70.9 Assessments Encounter Date Diagnosis (ICD Code) Assessment Notes Treatment Notes Treatment Clinical Notes Section Notes 03/24/2024 Essential hypertension (ICD-10 - I10) 03/24/2024 Prediabetes (ICD-10 - R73.09) 03/24/2024 Neutropenia, unspecified type (ICD-10 - D70.9) Plan Of Treatment Next Appt Details Provider Name:Cecilio hill, 04/07/2025 11:00:00 AM, [address] [place] [address], [address], [place], [place], [phone], Progress Notes * Mj BULL: 8 (69 yo M)Acc No.[id number]:03/24/2024 Progress Note Patient: Pravin SUNG Provider: Lisa Ruffin MD :1955 A ge:68 Y S ex:Male Date:03/24/2024 Address: [place], [id number] Subjective: * Chief Complaints: * 1 . FASTING LABS. * Medical History: Objective: * Vitals: Assessment: * Assessment: 1. E ssential hypertension - I10 (Primary) 2 . P rediabetes - R73.09 ? 3 . N eutropenia, unspecified type - D70.9 Plan: * Treatment: 2. P rediabetes L AB: Complete Blood Count Auto Diff (Collection Date & Time - 03/24/2024 07:30 AM) L AB: Comprehensive [place]. Panel Fast (Collection Date & Time - 03/24/2024 07:30 AM) L AB: Lipid Panel (Collection Date & Time - 03/24/2024 07:30 AM) L AB: PSA,Total (Free>4and<10) (Collection Date & Time - 03/24/2024 07:30 AM) L AB: Microalbumin, Random (Collection Date & Time - 03/24/2024 07:30 AM) L AB: Hemoglobin A1c (Collection Date & Time - 03/24/2024 07:30 AM) L AB: UA ClnCatch+Micro w/rflx Cult (Collection Date & Time - 03/24/2024 07:30 AM) 3. N eutropenia, unspecified type L AB: Complete Blood Count Auto Diff (Collection Date & Time - 03/24/2024 07:30 AM) L AB: Comprehensive [place]. Panel Fast (Collection Date & Time - 03/24/2024 07:30 AM) L AB: Lipid Panel (Collection Date & Time - 03/24/2024 07:30 AM) L AB: PSA,Total (Free>4and<10) (Collection Date & Time - 03/24/2024 07:30 AM) L AB: Microalbumin, Random (Collection Date & Time - 03/24/2024 07:30 AM) L AB: Hemoglobin A1c (Collection Date & Time - 03/24/2024 07:30 AM) L AB: UA ClnCatch+Micro w/rflx Cult (Collection Date & Time - 03/24/2024 07:30 AM) * Procedure Codes: 3 6415 VENIPUNCT, ROUTINE* * * The named appointment provid er may or may not be the originator of this progress note, and it is not deemed complete until electronically signed by the appointment provider. Sign off status: Pending * Provider: Lisa Ruffin MD Date: 05/25/2023 Generated for Hannah mclaughlin/Kesha/Sonamitting on: 03:20 PM EST
--- OUTSIDE RECORDS SUMMARY | 2024-04-01 05:00 | XMS_ITS ---
Author Organization Cecilio Ruffin MD Address [address] [place], [place] [id number] Care Team Providers Care Press Tender Incendiary Grenade Name Role Phone Cecilio Ruffin Primary Care Provider [phone] Allergies No Known Allergies Results Component Value Reference Range Notes Occult Blood, Stool, Guaiac Reviewed date:04/01/2024 01:16:45 PM Interpretation:Negative Performing Lab: Notes/Report: Negative Occult Blood, Stool, Guaiac Neg Reason For Referral Reason bilateral carpal sherry sung syndrome Diagnosis 1 Bilateral carpal sherry sung syndrome (G56.03) Referral Organization Cecilio Ruffin MD Referring Provider First Name Cecilio Referring Provider Last Name Laly Referring Provider Speciality Internal M edicine Referred Provider William Jarrett Referred Provider Specialty Orthopedic S urgery General Notes Anna Allen 0 04/08/2024 11:54:33 AM > info faxedTiffany Annette 04/12/2024 01:50:36 PM > was told by office to refax [phone] Annette 05/17/2024 11:03:55 AM > info mailed to patient Referral Priority Routine Referral Appointment Date 05/30/2024 REASON FOR VISIT COMP EXAM Medications Medication SIG (Take, Route, Frequency, Duration) Notes Start Date End Date Status Irbesartan-hydroCHLOROthia zide 300-12.5 MG TAKE 1 TABLET BY MOUTH EVERY DAY Active Ciclopirox 0.77 % APPLY DAILY TO SKIN EVERY DAY FOR 14 DAYS for 30 Active Social History Tobacco Use: Social History Observation Description Date Details (start date - stop date) Never Smoker NA - NA Tobacco Use/Smoking Question Answer Notes Patient is [...] Never (0 point) Points 1 Interpretation Negative Vital Signs Blood pressure systolic 142 mm Hg 04/01/19 25 Blood pressure diastolic 80 mm Hg 025 Height 72 in 04/01/2024 Weight 210 lbs 04/01/2024 BMI 28.48 kg/m2 04/01/2024 Encounters Encounter Location Date Provider Diagnosis Cecilio Ruffin MD [address] [place] [address] [address] [place], [place] [id number] 04/01/2024 Cecilio Ruffin Bilateral carpal tunnel syndrome G56.03 ; Essential hypertension I10 ; Neutropenia, unspecified type D70.9 ; Elevated liver enzymes R74.8 ; Prediabetes R73.09 ; Colon cancer screening Z12.11 and Depression screening Z13.31 Assessments Encounter Date Diagnosis (ICD Code) Assessment Notes Treatment Notes Treatment Clinical Notes Section Notes 04/01/2024 Bilateral carpal tunnel syndrome (ICD-10 - G56.03) referral [facility] 04/01/2024 Essential hypertension (ICD-10 - I10) stable, will continue current regiment and will continue to monitor 04/01/2024 Neutropenia, unspecified type (ICD-10 - D70.9) 04/01/2024 Elevated liver enzymes (ICD-10 - R74.8) related to his weight. needs to lose weight, advised on diet 04/01/2024 Prediabetes (ICD-10 - R73.09) stable, no need for medication at this time 04/01/2024 Colon cancer screening (ICD-10 - Z12.11) guaiac negative 04/01/2024 Depression screening (ICD-10 - Z13.31) negative screen Plan Of Treatment Medication Medication Name Sig Start Date Stop Date Notes Irbesartan-hydroCHLOROthiazi de 300-12.5 MG TAKE 1 TABLET BY MOUTH EVERY DAY Treatment Notes Assessment Notes Bilateral carpal tunnel syndrome referra luis to [facility] Essential hypertension stable, will cont inue current regiment and will continue to monitor Elevated liver enzymes related to his we ight. needs to lose weight, advised on diet Prediabetes stable, no need for medication at this time Colon cancer screening guaiac negative Depression screening negative screen Referrals Referral Date Details 04/01/2024 04/01/2024, tiara smith carpal tunnel syndrome, William Jarrett Next Appt Details Follow Up: 6 Months, Reason: Provider Name:Cecilio Bueno ier, 04/07/2025 11:00:00 AM, [address] [place] [address], [address], [place], [place], [phone], Progress Notes * Pravin BULLDOB: [birth year] (68 yo M)Acc No.[id number]:04/01/2024 Patient: Pravin Snyder Provider: Lisa Ruffin MD :1955 A ge:68 Y S ex:Male Date:04/01/2024 Address: [address] [facility], [id number] Subjective: * Chief Complaints: * C OMP EXAM * HPI: D epression Screening: PHQ-9 L ittle interest or pleasure in doing things N ot at all, F eeling down, depressed, or hopeless N ot at all, T rouble falling or staying asleep, or sleeping too much N ot at all, F eeling tired or having little energy N ot at all, P oor appetite or overeating N ot at all, F eeling bad about yourself or that you are a failure, or have let yourself or your family down N ot at all, T rouble concentrating on things, such as reading the newspaper or watching television N ot at all, M oving or speaking so slowly that other people could have noticed; or the opposite, being so fidgety or restless that you have been moving around a lot more than usual N ot at all, T houghts that you would be better off or of hurting yourself in some way N ot at all, T otal Score 0 . I nterpretation and Intervention D epression Screening Findings N egative, F ollow-Up for Depression : review of PHQ-9 found negative result, no follow-up needed. pt is a 68 yo male here today becasue he is having problems with carpal tunnel pain. C ommunication Needs: Communication Needs D oes the patient have a hearing impairment N o, D oes the patient have a vision impairment? Y es, I f yes, what is the vision impairment? G lasses, D oes the patient have a cognition impairment? N o. F all Risk: History H ave you had any falls with injury in the past year? N o, H ave you had two or more falls in the past year? N o. S DAREN Questions: SDOH Questions I n the past year have you been worried about losing housing? N o, I n the past year have you or any family members you live with been unable to get any of the following when it was really needed? Check all that apply: N one. * ROS: G eneral/Constitutional: Change in appetite d enies. C hills d enies. F ever d enies. O phthalmologic: Blurred vision d enies. D ischarge d enies. P ain d enies. E NT: Decreased hearing d enies. S ore throat d enies.?Swollen glands d enies. E ndocrine: Cold intolerance d enies. E xcessive thirst d enies. H eat intolerance d enies. W eight loss d enies. R espiratory: Cough d enies. S hortness of breath at rest d enies. S hortness of breath with exertion d enies. W heezing d enies. C ardiovascular: Chest pain at rest d enies. C hest pain with exertion?denies. I rregular heartbeat d enies. S hortness of breath d enies. ? G astrointestinal: Abdominal pain d enies. C hange in bowel habits d enies. D iarrhea d enies. N ausea d enies. R ectal bleeding d enies. V omiting d enies . G enitourinary: Blood in urine d enies. D ifficulty urinating d enies. F requent urination d enies. M usculoskeletal: Painful joints d enies. W eakness d enies. ? S kin: Dry skin d enies. I tching d enies. D enies?Mole(s), changes in moles, new moles or any lesions of concern. D enies P hotosensitivity. R les d enies. N eurologic: Dizziness d enies. F ainting d enies. H eadache?denies. * Medical History: * Surgical History: * Hospitalization/Major Diagno stic Procedure: * Family History: F ather: 88 yrs, diagnosed with Alzheimer disease. M other: alive 93 yrs. 2 brother(s) - healthy. 1 son(s) , 2 daughter(s) - healthy. . Father- Dementia Mother healthy, Denies mental health/substance abuse family history, Denies mental health/substance abuse family history, No pertinent family medical history. * Social History: T obacco Use: T obacco Use/Smoking P atient is a n onsmoker, A dditional Findings: Tobacco Non-User C urrent non-smoker, currently using no form of tobacco. D rugs/Alcohol: A lcohol Screen D id you have a drink containing alcohol in the past year? Y es, H ow often did you have a drink containing alcohol in the past year? M onthly or less (1 point), H ow many drinks did you have on a typical day when you were drinking in the past year? 1 or 2 drinks (0 point), H ow often did you have 6 or more drinks on one occasion in the past year? N ever (0 point), P oints 1 , I nterpretation N egative. M iscellaneous: n o Caffeine. Children: yes. Exercise: yes, walks the dog sue AM 25 minutes. Housing: owning. Living with: spouse. Marital status: . Occupation: weeks/months/years, retired. Pets: cats: dogs:chinchillas and turtles. no Travel outside of the [place]. * Medications: T akingCiclopirox 0.77 % Gel APPLY DAILY TO SKIN EVERY DAY FOR 14 DAYS Irbesartan-hydroCHLOROthiazide 300-12.5 MG Tablet TAKE 1 TABLET BY MOUTH EVERY DAY Medication List reviewed and reconciled with the patientTaking Ciclopirox 0.77 % Gel APPLY DAILY TO SKIN EVERY DAY FOR 14 DAYS Taking Irbesartan-hydroCHLOROthiazide 300-12.5 MG Tablet TAKE 1 TABLET BY MOUTH EVERY DAY Medication List reviewed and reconciled with the patient * Allergies: N .K.D.A.yes[Allergies Verified] Objective: * Vitals: H t: 72, Wt:210, BMI:28.48, BP:142/80, Repeat BP:130/80. * P ast Orders: L ab:Lipid Panel (Order Date - 03/24/2024) (Collection Date - 03/24/2024) Value Reference Range Triglycerides 116 <150 - mg/dL Cholesterol 201 H <200 - mg/dL LDL Cholesterol Calculated 112 H <100 - mg/dL HDL Cholesterol 66 >40 - mg/dL L ab:PSA,Total (Free>4and<10) (Order Date - 03/24/2024) (Collection Date - 03/24/2024) Value Reference Range PSA,Total (Free>4and<10) 2.26 0.00-4.00 - ng/ mL L ab:Microalbumin, Random (Order Date - 03/24/2024) (Collection Date - 03/24/2024) Value Reference Range Creatinine Urine 136.87 - mg/dL Microalbumin Urine 9.0 - mg/L Microalbum Creatinine Ratio Ur 6.5 <30 - ug/ mg cr L ab:Complete Blood Count Auto Diff (Order Date - 03/24/2024) (Collection Date - 03/24/2024) Value Reference Range White Blood Count 4.1 L 4.8-10.8 - X10*3/uL Red Blood Count 4.73 4.60-5.80 - X10*6/uL Hemoglobin 15.2 14.0-18.0 - g/dl Hematocrit 45.1 42.0-52.0 - % Mean Corpuscular Volume 95.3 80.0-98.0 - fL Mean Corpuscular Hemoglobin 32.1 27.0-33.0 - pg Mean Corpuscular HGB Conc 33.7 31.0-36.0 - g/ dl Red Cell Distribution Width 11.7 11.0-16.0 - % Platelet Count 177 160-400 - X10*3/uL Mean Platelet Volume 9.9 9.4-12.4 - fL Neutrophils Percent Auto 56.9 45-73 - % Imm Gran Pct Auto 1.0 H 0.0-0.4 - % Lymphocytes Percent Auto 25.4 20-40 - % Monocytes Percent Auto 14.8 H 2-11 - % Eosinophils Percent Auto 1.2 0-4 - % Basophils Percent Auto 0.7 0-2 - % NRBC Pct Auto 0.0 0.0-0.2 - /100WBC Neutrophils Absolute Auto 2.3 2.0-8.3 - x10* 3/uL Imm Gran Abs Auto 0.04 H 0.00-0.03 - X10*3/uL Lymphocytes Absolute Auto 1.0 L 1.2-4.9 - X10* 3/uL Monocytes Absolute Auto 0.6 0.1-1.2 - X10*3/ uL Eosinophils Absolute Auto 0.1 0.0-0.4 - X10* 3/uL Basophils Absolute Auto 0.0 0.0-0.2 - X10*3/ uL NRBC Abs Auto 0.000 0.0-0.012 - X10*3/uL L ab:Hemoglobin A1c (Order Date - 03/24/2024) (Collection Date - 03/24/2024) Value Reference Range Hemoglobin A1c % 5.3 <6.0 - % Estimated Average Glucose 105 - mg/dL L ab:UA ClnCatch+Micro w/rflx Cult (Order Date - 03/24/2024) (Collection Date - 03/24/2024) Value Reference Range Color Urine Yellow - Appearance Urine Clear - PH 5.5 5.0-9.0 - Glucose Urine UA Negative Negative - mg/dL Urine Blood Negative Negative - Specific [place] - Urine 1.020 1.005-1.025 - Urine Protein Negative Neg-Trace - mg/dL Urine Ketones Negative Negative - mg/dL Nitrite Urine Negative Negative - Leukocyte Esterase Urine Negative Negative - RBC Urine 0-2 0-2 - /HPF WBC Urine 0-5 0-5 - /HPF Squamous Epithelial Cell Urine 0-2 0-2 - /HP F Bacteria Urine None Seen None Seen - Hyaline Casts Urine 0-2 0-2 - /LPF L ab:Comprehensive [place]. Panel Fast (Order Date - 03/24/2024) (Collection Date - 03/24/2024) Value Reference Range Sodium 141 135-145 - mmol/L Bilirubin Total 0.4 0.0-1.0 - mg/dL Aspartate Amino Transferase 38 H 5-37 - U/L Alanine Aminotransferase 43 H 0-40 - U/L Total Protein 7.1 6.5-8.0 - g/dL Albumin Level 4.3 3.5-5.0 - g/dL Alkaline Phosphatase 89 39-117 - U/L Potassium 4.2 3.3-5.1 - mmol/L Chloride 107 96-108 - mmol/L Carbon Dioxide 27 22-29 - mmol/L Anion Gap 11 L 12-20 - Blood Urea Nitrogen 12 9-16 - mg/dL Creatinine 0.72 0.5-1.4 - mg/dL Estimated Glomerular Filt Rate > 60 - Glucose Fasting 60 60-99 - mg/dL Calcium 8.7 8.4-10.2 - mg/dL * Examination: G eneral Examination: GENERAL APPEARANCE: w ell developed, well nourished, in no acute distress. HEAD: n ormocephalic, atraumatic. EYES: p upils equal, round, reactive to light and accommodation, sclera non-icteric. EARS: n ormal. ORAL CAVITY: m ucosa moist. THROAT: c lear. NECK/THYROID: n rene supple, full range of motion, no cervical lymphadenopathy, no bruits. SKIN: w arm and dry, no suspicious lesions. HEART: r egular rate and rhythm, S1, S2 normal, no murmurs.? LUNGS: c lear to auscultation bilaterally. ABDOMEN: s oft, nontender, nondistended, bowel sounds present, normal, no organomegaly , no masses palpable. RECTAL EXAM: n ormal tone, no external hemorrhoids, no masses palpable, prostate normal, stool guaiac negative. MALE GENITOURINARY: c ircumcised , no penile lesions or discharge , no testicular mass , testes descended bilaterally. EXTREMITIES: n o clubbing, cyanosis, or edema. NEUROLOGIC: n onfocal, motor strength normal upper and lower extremities, sensory exam intact. Assessment: * Assessment: 1. B ilateral carpal tunnel syndrome - G56.03 (Primary) 2 . E ssential hypertension - I10 3 . N eutropenia, unspecified type - D70.9 4 . E levated liver enzymes - R74.8?5. P rediabetes - R73.09 6 . C olon cancer screening - Z12.11 7 . D epression screening - Z13.31 Plan: * Treatment: 2. E ssential hypertension Continue Irbesartan-hydroCHLOROthiazide Tablet, 300-12.5 MG, TAKE 1 TABLET BY MOUTH EVERY DAY. Notes: stable, will continue current regiment and will continue to monitor 3. E levated liver enzymes Notes: related to his weight. needs to lose weight, advised on diet 4. P rediabetes Notes: stable, no need for medication at this time 5. C olon cancer screening L AB: Occult Blood, Stool, Guaiac N egative Value Reference Range O ccult Blood, Stool, Guaiac Neg Notes: guaiac negative??6.?Depression screening? Notes: negative screen?? * Procedure Codes: 8 2270 TEST FOR BLOOD, [id number] Complex e/m visit add on * Follow Up: 6 Months * * Sign off status: Completed true * Provider: Lisa Ruffin MD Date: 0 04/01/2024 Generated for Hannah mclaughlin/Kesha/Sonamitting on: 03:20 PM EST History and Physical Notes * HPI (History of Present Illness) Category Sub-Category Detail Notes Category Not es Depression Screening PHQ-9 Little inte rest or pleasure in doing things: Not at all pt is a 68 yo male here today becasue he is having problems with carpal tunnel pain Feeling down, depressed, or hopeless: No t [...] Have you had any falls with injury i n the past year?: No Have you had two or more falls in the year?: No Communication Needs Communication Needs Does the patient have a hearing impairment: No Does the patient have a vision impairmen t?: Yes If yes, what is the vision impairment?: Glasses Does the patient have a cognition impair ment?: No Examination Category Sub-Category Detail Notes Category Not es General Examination GENERAL APPEARANCE: well dev eloped, well nourished, in no acute distress HEAD: normocephalic, atrau matic EYES: pupils equal, round, reactive to light and accommodation, sclera non-icteric EARS: normal THROAT: clear NECK/THYROID: neck supple, full ra nge of motion, no cervical lymphadenopathy, no bruits HEART: regular rate and rhy thm, S1, S2 normal, no murmurs LUNGS: clear to auscultatio n bilaterally ABDOMEN: soft, nontender, non distended, bowel sounds present, normal, no organomegaly , no masses palpable NEUROLOGIC: nonfocal, motor stre ngth normal upper and lower extremities, sensory exam intact SKIN: warm and dry, no bernardo picious lesions EXTREMITIES: no clubbing, cyanosi s, or edema MALE GENITOURINARY: circumcised , no pen ile lesions or discharge , no testicular mass , testes descended bilaterally RECTAL EXAM: normal tone, no exte rnal hemorrhoids, no masses palpable, prostate normal, stool guaiac negative ORAL CAVITY: mucosa moist Consultation Request Notes Referral Date Referring Provider Referred Provider Not es 04/01/2024 Cecilio Ruffin Jeffrey bilateral carpal tunnel syndrome
--- OUTSIDE RECORDS SUMMARY | 2024-10-04 05:00 | XMS_ITS ---
Author Organization Cecilio Ruffin MD Address [address] [place] [id number] Care Team Providers Care X Ray Technician Name Role Phone Cecilio Ruffin Primary Care Provider Allergies No Known Allergies Results Component Value Reference Range Notes Hemoglobin A1c Reviewed date:10/04/2024 10:03:41 AM Interpretation: Performing Lab: Notes/Report: Hemoglobin A1c 5.4 Glucose, finger stick Reviewed date:10/04/2024 09:57:26 AM Interpretation: Performing Lab: Notes/Report: Value 125 REASON FOR VISIT 6 month Medications Medication SIG (Take, Route, Frequency, Duration) Notes Start Date End Date Status Irbesartan-hydroCHLOROthia zide 300-12.5 MG TAKE 1 TABLET BY MOUTH EVERY DAY Active Vital Signs Blood pressure systolic 122 mm Hg 10/05/19 25 Blood pressure diastolic 74 mm Hg 025 Height 72 in 10/04/2024 Weight 208 lbs 10/04/2024 BMI 28.21 kg/m2 10/04/2024 weight is down 2pounds since 04-01-24 Encounters Encounter Location Date Provider Diagnosis Cecilio Ruffin MD [address] [place] [phone] 10/04/2024 Cecilio Ruffin Prediabetes R73.09 and Essential hypertension I10 Assessments Encounter Date Diagnosis (ICD Code) Assessment Notes Treatment Notes Treatment Clinical Notes Section Notes 10/04/2024 Prediabetes (ICD-10 - R73.09) stable, no need for medication at this time 10/04/2024 Essential hypertension (ICD-10 - I10) stable, will contiue current regiment Plan Of Treatment Treatment Notes Assessment Notes Prediabetes stable, no need for medication at this time Essential hypertension stable, will cont iue current regiment Next Appt Details Provider Name:Cecilio Bueno ier, 04/07/2025 11:00:00 AM, [address] [facility] [address], [address], [place], [place], [phone], Progress Notes * Pravin BULLDOB: [birth year] (69 yo M)Acc No.[id number]:10/04/2024 Progress Notes Patient: Pravin SUNG Provider: Lisa Ruffin MD :1955 A ge:68 Y S ex:Male Date:10/04/2024 Address: [address] [place], [id number] Subjective: * Chief Complaints: * 6 month * HPI: S ymptom(s): patient is a 68 yo male here for 6 month follow up visit. * ROS: G eneral/Constitutional: Denies C hills. D enies F atigue. D enies F ever. D enies H eadache. E NT: Denies S ore throat. E ndocrine: Denies D ifficulty sleeping. D enies D izziness.?Denies E xcessive sweating. D enies E xcessive thirst. D enies F requent urination. R espiratory: Denies C ough. D enies S hortness of breath at rest. D enies S hortness of breath with exertion. G astrointestinal: Denies D iarrhea. D enies N ausea. * Medical History: * Surgical History: * Hospitalization/Major Diagno stic Procedure: * Medications: T akingIrbesartan-hydroCHLOROthiazide 300-12.5 MG Tablet TAKE 1 TABLET BY MOUTH EVERY DAY Taking Irbesartan-hydroCHLOROthiazide 300-12.5 MG Tablet TAKE 1 TABLET BY MOUTH EVERY DAY DiscontinuedCiclopirox 0.77 % Gel APPLY DAILY TO SKIN EVERY DAY FOR 14 DAYS Medication List reviewed and reconciled with the patientDiscontinued Ciclopirox 0.77 % Gel APPLY DAILY TO SKIN EVERY DAY FOR 14 DAYS Medication List reviewed and reconciled with the patient * Allergies: N .K.D.A.yes[Allergies Verified] Objective: * Vitals: H t: 72, Wt: 208, BMI:28.21, BP:122/74, Wt-k.35. weight is down 2pounds since 04-01-24. * Examination: G eneral Examination: GENERAL APPEARANCE: a lert, well hydrated, in no distress, male. HEAD: n ormocephalic. SKIN: g ood turgor. HEART: r egular rate and rhythm, no murmurs, rubs, gallops.? LUNGS: c lear to auscultation bilaterally. Assessment: * Assessment: 1. P rediabetes - R73.09 (Primary) 2 . E ssential hypertension - I10 ? Plan: * Treatment: Value Reference Range H emoglobin A1c 5.4 ?LAB: Glucose, finger stick (Collection Date & Time - 10/04/2024)* Value Reference Range V alue 125 Notes: stable, no need for medication at this time??2.?Essential hypertension? Notes: stable, will contiue current regiment?? * Procedure Codes: 8 2947 ASSAY, GLUCOSE, BLOOD QUANT, Modifiers: QW 01985 GLYCATED HEMOGLOBIN TEST, Modifiers: QW * * Sign off status: Completed true * Provider: Lisa Ruffin MD Date: 0 10/04/2024 Generated for Printi ng/Kamerong/eTransmitting on: 03:20 PM EST History and Physical Notes * HPI (History of Present Illness) Category Sub-Category Detail Notes Category Not es Symptom(s) patient is a 68 yo male here for 6 month follow up visit Examination Category Sub-Category Detail Notes Category Not es General Examination GENERAL APPEARANCE: alert, w ell hydrated, in no distress, male HEAD: normocephalic HEART: regular rate and rhy thm, no murmurs, rubs, gallops LUNGS: clear to auscultatio n bilaterally SKIN: good turgor
--- OUTSIDE RECORDS SUMMARY | 2025-03-28 02:45 | XMS_ITS ---
Author Organization Cecilio Ruffin MD Address [address] [place], [place] [id number] Care Team Providers Care Band Booker Name Role Phone Cecilio Ruffin Primary Care Provider Results Component Value Reference Range Notes Complete Blood Count Auto Di ff (Not yet reviewed by provider) Interpretation: Performing Lab:[facility], [address] [place] [phone] Notes/Report: White Blood Count 6.1 4.8-10.8 X10*3/uL Red Blood Count 4.60 4.60-5.80 X10*6/uL Hemoglobin 14.8 14.0-18.0 g/dl Hematocrit 43.2 42.0-52.0 % Mean Corpuscular Volume 93.9 80.0-98.0 fL Mean Corpuscular Hemoglobin 32.2 27.0-33.0 pg Mean Corpuscular HGB Conc 34.3 31.0-36.0 g/dl Red Cell Distribution Width 11.7 11.0-16.0 % Platelet Count 187 160-400 X10*3/uL Mean Platelet Volume 9.9 9.4-12.4 fL Neutrophils Percent Auto 64.7 45-73 % Imm Gran Pct Auto 0.5 0.0-0.4 % Lymphocytes Percent Auto 16.5 20-40 % Monocytes Percent Auto 14.7 2-11 % Eosinophils Percent Auto 3.1 0-4 % Basophils Percent Auto 0.5 0-2 % NRBC Pct Auto 0.0 0.0-0.2 /100WBC Neutrophils Absolute Auto 3.9 2.0-8.3 x10*3/u L Imm Gran Abs Auto 0.03 0.00-0.03 X10*3/uL Lymphocytes Absolute Auto 1.0 1.2-4.9 X10*3/u L Monocytes Absolute Auto 0.9 0.1-1.2 X10*3/uL Eosinophils Absolute Auto 0.2 0.0-0.4 X10*3/u L Basophils Absolute Auto 0.0 0.0-0.2 X10*3/uL NRBC Abs Auto 0.000 0.0-0.012 X10*3/uL Microalbumin, Random (Not ye t reviewed by provider) Interpretation: Performing Lab:[facility], [address] [place] [phone] Notes/Report: Creatinine Urine 224.18 Microalbumin Urine 13.0 Microalbum/Creatinine Ratio Ur 5.7 <30 ug/mg cr Albumin/Creatinine Ratio Reference Ranges: Normal: < 30 ug/mg creatinine Microalbuminuria: 30 - 300 ug/mg creatinine Clinical Albuminuria: > 300 ug/mg creatinine Comprehensive [place]. Panel Fa Reviewed date:03/28/2025 12:43:46 PM Interpretation: Performing Lab:[facility], [address] [place] [phone] Notes/Report: Sodium 138 135-145 mmol/L Potassium 3.7 3.3-5.1 mmol/L Chloride 102 96-108 mmol/L Carbon Dioxide 30 22-29 mmol/L Anion Gap 10 12-20 Blood Urea Nitrogen 11 9-16 mg/dL Creatinine 0.86 0.5-1.4 mg/dL Estimated Glomerular Filt Rate > 60 Chronic Kidney Disease: Estimated GFR < 60 mL/min/1.73m2 Severe Kidney Disease: Estimated GFR < 15 mL/min/1.73m2 Glucose Fasting 108 60-99 mg/dL A fasting glucose from 100-125 mg/dl is considered impaired (pre-diabetes). Calcium 8.9 8.4-10.2 mg/dL Bilirubin Total 0.9 0.0-1.0 mg/dL Aspartate Amino Transferase 28 5-37 U/L Alanine Aminotransferase 23 0-40 U/L Total Protein 6.7 6.5-8.0 g/dL Albumin Level 4.2 3.5-5.0 g/dL Alkaline Phosphatase 102 39-117 U/L Lipid Panel Reviewed date:03/28/2025 12:36:15 PM Interpretation: Performing Lab:[facility], [address] [place] [phone] Notes/Report: Triglycerides 105 <150 mg/dL Desirable Triglyceride: less than 150 mg/dL Borderline High Triglyceride 150-199 mg/dL High Triglyceride: 200-499 mg/dL Very High Triglyceride: greater than or equal to 5OO mg/dL Cholesterol 180 <200 mg/dL Desirable Cholesterol: less than 200 mg/dL Borderline High Cholesterol: 200-239 mg/dL High Cholesterol: greater than 239 mg/dL LDL Cholesterol Calculated 103 <100 mg/dL Desirable LDL: less than 100 mg/dL Near Optimal/Above Optimal LDL: 110-129 mg/dL Borderline High LDL: 130-159 mg/dL High LDL: 160-189 mg/dL Very High LDL: greater than or equal to 190 mg/dL HDL Cholesterol 56 >40 mg/dL Desirable HDL: greater than 40 mg/dL Note: This HDL assay may give artificially low results in patients with liver disease. PSA,Total (Free>4and<10) Reviewed date:03/28/2025 12:37:25 PM Interpretation: Performing Lab:[facility], [address] [place] [phone] Notes/Report: PSA,Total (Free>4and<10) 2.70 0.00-4.00 ng/mL A Free PSA was not [...] Diaz Alinity i Chemiluminescent Microparticle Immunoassay (CMIA) Hemoglobin A1c Reviewed date:03/28/2025 12:40:10 PM Interpretation: Performing Lab:[facility], [address] [place] [phone] Notes/Report: Hemoglobin A1c % 5.5 <6.0 % Hemoglobin A1C Reference Range Adults: 4.8 - 6.0 % Non diabetic: < 6.0 % Goal: < 7.0 % Additional Action Suggested: > 8.0 % Note: Hemoglobin A1c results are invalid for patients with abnormal amounts of HbF. Blood transfusions may impact the HbA1c concentration in the patient sample. Estimated Average Glucose 111 eAG = Estimated average glucose which is %A1C expressed as average glucose, using the formula of the E1T-Jfblzem Average Glucose study (ADAG), Diabetes Care, Vol.31,#8, 2007 UA ClnCatch+Micro w/rflx Cul t Reviewed date:03/28/2025 12:44:59 PM Interpretation: Performing Lab:[facility], [address] [place] [phone] Notes/Report: Urine, Clean Catch Color Urine Yellow Appearance Urine Clear PH >= 9.0 5.0-9.0 Glucose Urine UA Negative Negative mg/dL Urine Blood Negative Negative Specific [place] - Urine 1.025 1.005-1.025 Urine Protein Trace Neg-Trace mg/dL Urine Ketones Negative Negative mg/dL Nitrite Urine Negative Negative Leukocyte Esterase Urine Negative Negative RBC Urine 0-2 0-2 /HPF WBC Urine 0-5 0-5 /HPF Squamous Epithelial Cell Urine 0-2 0-2 /HPF Bacteria Urine None Seen None Seen Hyaline Casts Urine 0-2 0-2 /LPF REASON FOR VISIT yearly fasting labs Encounters Encounter Location Date Provider Diagnosis Cecilio Ruffin MD [address] [place] [address] [place] [phone] 03/28/2025 Cecilio Ruffin Essential hypertension I10 ; Prediabetes R73.09 and Neutropenia, unspecified type D70.9 Assessments Encounter Date Diagnosis (ICD Code) Assessment Notes Treatment Notes Treatment Clinical Notes Section Notes 03/28/2025 Essential hypertension (ICD-10 - I10) 03/28/2025 Prediabetes (ICD-10 - R73.09) 03/28/2025 Neutropenia, unspecified type (ICD-10 - D70.9) Plan Of Treatment Pending Test Test Name Order Date Complete Blood Count Auto Diff Microalbumin, Random 03/28/2025 Next Appt Details Provider Name:Cecilio hill, 04/07/2025 11:00:00 AM, [address] [place] [address], Suite [facility], [place], [place], [id number], Progress Notes * Pravin BULLDOB: 8 (69 yo M)Acc No.[id number]:03/28/2025 Progress Note Patient: Pravin SUNG Provider: Lisa Ruffin MD :1955 A ge:69 Y S ex:Male Date:03/28/2025 Address:[address] [place], [place] [address] [id number] Subjective: * Chief Complaints: * 1 . Yearly fasting labs. * Medical History: Objective: * Vitals: Assessment: * Assessment: 1. E ssential hypertension - I10 (Primary) 2 . P rediabetes - R73.09 ? 3 . N eutropenia, unspecified type - D70.9 Plan: * Treatment: 2. P rediabetes L AB: Complete Blood Count Auto Diff (Collection Date & Time - 03/28/2025 07:45 AM) L AB: Microalbumin, Random (Collection Date & Time - 03/28/2025 07:45 AM) L AB: Comprehensive [place]. Panel Fast (Collection Date & Time - 03/28/2025 07:45 AM) L AB: Lipid Panel (Collection Date & Time - 03/28/2025 07:45 AM) L AB: PSA,Total (Free>4and<10) (Collection Date & Time - 03/28/2025 07:45 AM) L AB: Hemoglobin A1c (Collection Date & Time - 03/28/2025 07:45 AM) L AB: UA ClnCatch+Micro w/rflx Cult (Collection Date & Time - 03/28/2025 07:45 AM) 3. N eutropenia, unspecified type L AB: Complete Blood Count Auto Diff (Collection Date & Time - 03/28/2025 07:45 AM) L AB: Microalbumin, Random (Collection Date & Time - 03/28/2025 07:45 AM) L AB: Comprehensive [place]. Panel Fast (Collection Date & Time - 03/28/2025 07:45 AM) L AB: Lipid Panel (Collection Date & Time - 03/28/2025 07:45 AM) L AB: PSA,Total (Free>4and<10) (Collection Date & Time - 03/28/2025 07:45 AM) L AB: Hemoglobin A1c (Collection Date & Time - 03/28/2025 07:45 AM) L AB: UA ClnCatch+Micro w/rflx Cult (Collection Date & Time - 03/28/2025 07:45 AM) * Procedure Codes: 3 6415 VENIPUNCT, ROUTINE* * * The named appointment provid er may or may not be the originator of this progress note, and it is not deemed complete until electronically signed by the appointment provider. Sign off status: Pending * Provider: Lisa Ruffin MD Date: Generated for Hannah mclaughlin/Kesha/Sonamitting on: 03:19 PM EST
[2025-03-28 11:19] LABS: MANUAL DIFF FLAG NO
[2025-03-28 11:29] LABS: Hematocrit 43.2 % (42.0-52.0); Hemoglobin 14.8 g/dl (14.0-18.0); Imm Gran Abs Auto 0.03 X10*3/uL (0.00-0.03); Imm Gran Pct Auto 0.5 % (0.0-0.4); Lymphocytes Absolute Auto 1.0 X10*3/uL (1.2-4.9); Mean Corpuscular HGB Conc 34.3 g/dl (31.0-36.0); Mean Corpuscular Hemoglobin 32.2 pg (27.0-33.0); Mean Corpuscular Volume 93.9 fL (80.0-98.0); NRBC Abs Auto 0.000 X10*3/uL (0.0-0.012); NRBC Pct Auto 0.0 /100WBC (0.0-0.2); Platelet Count 187 X10*3/uL (160-400); Red Blood Count 4.60 X10*6/uL (4.60-5.80); White Blood Count 6.1 X10*3/uL (4.8-10.8)
[2025-03-28 11:34] LABS: Appearance Urine Clear; Glucose Urine UA Negative (Negative); PH >= 9.0 (5.0-9.0); Specific Gravity - Urine 1.025 (1.005-1.025)
[2025-03-28 12:08] LABS: PSA,Total (Free>4and<10) 2.70 ng/mL (0.00-4.00)
[2025-03-28 12:32] LABS: Alanine Aminotransferase 23 U/L (0-40); Albumin Level 4.2 g/dL (3.5-5.0); Alkaline Phosphatase 102 U/L (39-117); Anion Gap 10 (12-20); Aspartate Amino Transferase 28 U/L (5-37); Blood Urea Nitrogen 11 mg/dL (9-16); Calcium 8.9 mg/dL (8.4-10.2); Carbon Dioxide 30 mmol/L (22-29); Chloride 102 mmol/L (96-108); Cholesterol 180 mg/dL (<200); Estimated Glomerular Filt Rate > 60; HDL Cholesterol 56 mg/dL (>40); Potassium 3.7 mmol/L (3.3-5.1); Sodium 138 mmol/L (135-145); Total Protein 6.7 g/dL (6.5-8.0); Triglycerides 105 mg/dL (<150)
[2025-03-28 13:04] LABS: Microalbum/Creatinine Ratio Ur 5.7 ug/mg cr (<30)
--- OUTSIDE RECORDS SUMMARY | 2025-03-28 15:20 | XMS_ITS | Patient Health Record ---
Author Organization [facility] Address [address] [place] [address] Care Team Providers Care Non Food Receiving Clerk Name Role Phone Laly SHARIF, Cecilio Primary Care Provider Rene Leach Unavailable [phone] Reason For Referral No Information Medications Medication SIG (Take, Route, Frequency, Duration) Notes Start Date End Date Status Irbesartan-hydroCHLOROthia zide 300-12.5 MG Tablet 1 tablet Orally Once a day Active Social History Social History Additional Details Category Social Info Options Details Miscellaneous: Marital status: Occupation: Retired postal w orker Section Notes: Nonsmoker; 2 beers QD Problems Problem Type SNOMED Code ICD Code Onset Dates Problem Status W/U Status Risk Notes Problem Abnormal feces (497245554) Heme + stool (R19.5) Active confirmed Plan Of Treatment Future Test Test Name Order Date COLONOSCOPY 01/08/2016 Insurance Providers Payer Name Payer Address Payer Phone Subscriber Number Group Number Insured Name Patient Relationship to Insured Coverage Start Date Coverage End Date [facility] [address] [place], [place] [id number] CORY BULL Self - patient is the insured Medical (General) History Medical History History ICD Code Hypertension Melanoma--2005--right ankle Denies DC,DM,CVA,Lung disease,renal dise ase Neg. colonoscopy at age 52 [address] Marquez --told of internal hemorrhoids Surgical History Surgery Date(Month/Year) Right inginal hernia repair Melanoma excision on right ankle and lym ph nodes Vasectomy
--- OUTSIDE RECORDS SUMMARY | 2025-03-28 15:20 | XMS_ITS | Patient Health Record ---
Author Organization Cecilio Ruffin MD Address [address] [place], [place] [id number] Care Team Providers Care Sales Engineer Account Manager Name Role Phone Cecilio Ruffin Primary Care Provider Allergies No Known Allergies Results Component Value Reference Range Notes Hemoglobin A1c Reviewed date:10/04/2024 10:03:41 AM Interpretation: Performing Lab: Notes/Report: Hemoglobin A1c 5.4 Complete Blood Count Auto Di ff (Not yet reviewed by provider) Interpretation: Performing Lab:[facility], [address] [place] [phone] Notes/Report: White Blood Count 6.1 4.8-10.8 X10*3/uL [...] ye t reviewed by provider) Interpretation: Performing Lab:[address] [phone] Notes/Report: Creatinine Urine 224.18 Microalbumin Urine 13.0 Microalbum/Creatinine Ratio Ur 5.7 <30 ug/mg cr Albumin/Creatinine Ratio Reference Ranges: Normal: < 30 ug/mg creatinine Microalbuminuria: 30 - 300 ug/mg creatinine Clinical Albuminuria: > 300 ug/mg creatinine Comprehensive [place]. Panel Fa st Reviewed date:03/28/2025 12:43:46 PM Interpretation: Performing Lab:[address] [phone] Notes/Report: Sodium 138 135-145 mmol/L Potassium 3.7 [...] Panel Reviewed date:03/28/2025 12:36:15 PM Interpretation: Performing Lab:[address] [phone] Notes/Report: Triglycerides 105 <150 mg/dL Desirable Triglyceride: [...] (Free>4and<10) Reviewed date:03/28/2025 12:37:25 PM Interpretation: Performing Lab:[address] [phone] Notes/Report: PSA,Total (Free>4and<10) 2.70 0.00-4.00 ng/mL A [...] A1c Reviewed date:03/28/2025 12:40:10 PM Interpretation: Performing Lab:[facility], [address] [place] [phone] Notes/Report: Hemoglobin A1c % 5.5 <6.0 % [...] average glucose, using the formula of the P2R-Jsbxeal Average Glucose study (ADAG), Diabetes Care, Vol.31,#8, Oct. 2007 UA ClnCatch+Micro w/rflx Cul t Reviewed date:03/28/2025 12:44:59 PM Interpretation: Performing Lab:[facility], [address] [place] [phone] Notes/Report: Urine, Clean Catch Color Urine Yellow Appearance Urine Clear PH >= 9.0 5.0-9.0 Glucose Urine UA Negative Negative mg/dL Urine Blood Negative Negative Specific [place] - Urine 1.025 1.005-1.025 Urine Protein Trace Neg-Trace mg/dL Urine Ketones Negative Negative mg/dL Nitrite Urine Negative Negative Leukocyte Esterase Urine Negative Negative RBC Urine 0-2 0-2 /HPF WBC Urine 0-5 0-5 /HPF Squamous Epithelial Cell Urine 0-2 0-2 /HPF Bacteria Urine None Seen None Seen Hyaline Casts Urine 0-2 0-2 /LPF Occult Blood, Stool, Guaiac Reviewed date:04/01/2024 01:16:45 PM Interpretation:Negative Performing Lab: Notes/Report: Negative Occult Blood, Stool, Guaiac Neg Glucose, finger stick Reviewed date:10/04/2024 09:57:26 AM Interpretation: Performing Lab: Notes/Report: Value 125 Reason For Referral Reason bilateral carpal sherry sung syndrome Diagnosis 1 Bilateral carpal sherry sung syndrome (G56.03) Referral Organization Cecilio Ruffin MD Referring Provider First Name Cecilio Referring Provider Last Name Laly Referring Provider Speciality Internal M edicine Referred Provider William Jarrett Referred Provider Specialty Orthopedic S urgery General Notes Anna Allen 0 04/08/2024 11:54:33 AM > info faxed, Anna Allen 04/12/2024 01:50:36 PM > was told by office to refax [phone] Annette 05/17/2024 11:03:55 AM > info mailed to patient Referral Priority Routine Referral Appointment Date 05/30/2024 Medications Medication SIG (Take, Route, Frequency, Duration) Notes Start Date End Date Status Irbesartan-hydroCHLOROthia zide 300-12.5 MG TAKE 1 TABLET BY MOUTH EVERY DAY for 90 Active Immunizations Vaccine Route Administration Date Status Comme nts [...] 02/13/2020 Refused Fluarix Quadrivalent Unknown 03/04/2021 Refused Social History Tobacco Use: Social History Observation [...] Never (0 point) Points 1 Interpretation Negative Problems Problem Type SNOMED Code ICD Code Onset Dates Problem Status W/U Status Risk Notes Problem [id number] Essential hypertension (I10) Active confirmed Problem 0065356 Prediabetes (R73.09) Active confirmed Problem 795091775 History of melanoma (Z85.820) Active confirmed Problem 084939878 Neutropenia, unspecified type (D70.9) Active confirmed Problem 60472635 Bilateral carpal tunnel syndrome (G56.03) Active confirmed Vital Signs Blood pressure diastolic 74 mm Hg 10/04/2024 nacho ght is down 2pounds since 04-01-24 Height 72 in 10/04/2024 weight is down 2pounds since 04-01-24 Blood pressure systolic 122 mm Hg 10/04/2024 weig ht is down 2pounds since 04-01-24 Weight 208 lbs 10/04/2024 weight is down 2pounds since 04-01-24 BMI 28.21 kg/m2 10/04/2024 weight is down 2pounds since 04-01-24 Encounters Encounter Location Date Provider Diagnosis Cecilio Ruffin MD [address] [place] [phone] 03/28/2025 Cecilio Ruffin Essential hypertension I10 ; Prediabetes R73.09 and Neutropenia, unspecified type D70.9 Cecilio Ruffin MD [address] [place] [phone] 04/01/2024 Cecilio Ruffin Bilateral carpal tunnel syndrome G56.03 ; Essential hypertension I10 ; Neutropenia, unspecified type D70.9 ; Elevated liver enzymes R74.8 ; Prediabetes R73.09 ; Colon cancer screening Z12.11 and Depression screening Z13.31 Cecilio Ruffin MD [address] [place] [phone] 10/04/2024 Cecilio Ruffin Prediabetes R73.09 and Essential hypertension I10 Assessments Encounter Date Diagnosis (ICD Code) Assessment Notes Treatment Notes Treatment Clinical Notes Section Notes 03/28/2025 Essential hypertension (ICD-10 - I10) 04/01/2024 Bilateral carpal tunnel syndrome (ICD-10 - G56.03) referral to [facility] 04/01/2024 Essential hypertension (ICD-10 - I10) stable, will continue current regiment and will continue to monitor 10/04/2024 Prediabetes (ICD-10 - R73.09) stable, no need for medication at this time 03/28/2025 Prediabetes (ICD-10 - R73.09) 04/01/2024 Neutropenia, unspecified type (ICD-10 - D70.9) 10/04/2024 Essential hypertension (ICD-10 - I10) stable, will contiue current regiment 03/28/2025 Neutropenia, unspecified type (ICD-10 - D70.9) 04/01/2024 Elevated liver enzymes (ICD-10 - R74.8) related to his weight. needs to lose weight, advised on diet 04/01/2024 Prediabetes (ICD-10 - R73.09) stable, no need for medication at this time 04/01/2024 Colon cancer screening (ICD-10 - Z12.11) guaiac negative 04/01/2024 Depression screening (ICD-10 - Z13.31) negative screen Plan Of Treatment Pending Test Test Name Order Date Electrocardiogram (EKG) 01/16/2017 Electrocardiogram (EKG) 01/28/2018 Complete Blood Count Auto Diff 5 Microalbumin, Random 03/28/2025 Next Appt Details Provider Name:Cecilio parksr, 04/07/2025 11:00:00 AM, [address] [place] [address], [address], [place], [place], [phone], Insurance Providers Payer Name Payer Address Payer Phone Subscriber Number Group Number Insured Name Patient Relationship to Insured Coverage Start Date Coverage End Date [employer] [address] [place] [address] [id number] Pravin Webb Self - patient is the insured [employer] [address] [place], [place] [id number] Pravin Webb Self - patient is the insured Medical (General) History Medical History History ICD Code colonoscopy 2008 due 2019; c olonoscopy 02/20/[address] Salinas - repeat 10 years 11/30/13 refuses flu vac
--- OUTSIDE RECORDS SUMMARY | 2025-03-28 15:21 | XMS_ITS | Clinical Summary ---
Author Organization [facility] Prior to 08/27/24 Address [address] [place] [address] Care Team Providers Care Sealer Dry Cell Name Role Phone Unavailable Primary Care Provider Unavailabl e Social History Tobacco Use Types Packs/Day Years Used Date Smoking Tobacco: Never Assessed Sex and Gender Information Value Date Recorded Sex Assigned at Not on file Gender Identity Not on file Sexual Orientation Not on file Plan of Treatment Not on file
== END 2025-03-28 07:46 | disposition home or self-care (01) ==
LOC: HO.LNP 07:45
PROVIDERS: Visit Provider Internal Medicine
DX: I10 Essential (primary) hypertension (principal); R73.09 Other abnormal glucose; D70.9 Neutropenia, unspecified; Z12.5 Encounter for screening for malignant neoplasm of prostate
CPT/HCPCS: 80053; 80061; 81001; 82043; 82570; 83036; 84153; 85025